=== PATIENT | female | born 1995 | race Hispanic/Latino ===

== ENCOUNTER 2022-01-27 01:26 | Emergency (ER) | payer SELFPAY | END 2022-01-27 03:17 | disposition home or self-care (01) | LOC: CSHERS 01:26 | DX: O99.611 Diseases of the digestive system complicating pregnancy, first trimester (principal); K80.20 Calculus of gallbladder without cholecystitis without obstruction; O23.11 Infections of bladder in pregnancy, first trimester; Z3A.01 Less than 8 weeks gestation of pregnancy | CPT/HCPCS: 76705 ==

== ENCOUNTER 2022-09-12 06:00 | Inpatient (IN) | payer OTHER ==
[2022-09-12] MEDS ORDERED: Diphenoxylate HCl/Atropine Tablet PO PRN ×2 (12:29)
[2022-09-12] MEDS ORDERED: Acetaminophen 500 MG TAB PO PRN (12:29)
[2022-09-12] MEDS ORDERED: Methylergonovine 0.2 MG/ML VIAL IM PRN (12:29)
[2022-09-12] MEDS ORDERED: Carboprost 250 MCG/ML AMP IM PRN (12:29)
[2022-09-12] MEDS ORDERED: Tranexamic Acid 1,000 MG/10 ML VIAL IVP PRN (12:29)
[2022-09-12] MEDS ORDERED: HYDROcodone/Acetaminophen 5/325 mg Tablet PO PRN ×2 (12:29)
[2022-09-12] MEDS ORDERED: Misoprostol 200 MCG TAB PR PRN (12:29)
[2022-09-12] MEDS ORDERED: Butorphanol Tartrate 1 MG/ML VIAL SLOW IVP PRN (12:29)
[2022-09-12] MEDS ORDERED: Ibuprofen 800 MG TAB PO PRN (12:29)
[2022-09-12] MEDS ORDERED: Promethazine HCl 25 MG/ML VIAL IM PRN (12:29)
[2022-09-12] MEDS ORDERED: hydrALAZINE 20 MG/ML VIAL SLOW IVP PRN (12:29)
[2022-09-12] MEDS ORDERED: Ondansetron PF 4 MG/2 ML Vial IVP PRN (12:29)
[2022-09-12] MEDS ORDERED: Lidocaine 1% (PF) 30 ML VIAL SC PRN (12:29)
[2022-09-12] MEDS ORDERED: NS w/ Oxytocin 30 units 500 ML IV SCH ×3 (12:30)
[2022-09-12] MEDS: Lactated Ringer's 1,000 ML IV SCH (13:05)
[2022-09-12] MEDS ORDERED: NS w/ Oxytocin 30 units 500 ML ONE (13:13)
[2022-09-12 13:24] VITALS: BMI 31.7
[2022-09-12 13:34] LABS: Hemoglobin 8.2 g/dL (12.0-15.5); Mean Corpuscular HGB CONC 30.5 g/dL (32.0-36.0); Mean Corpuscular Hemoglobin 23.6 pg (27.0-33.0); Mean Corpuscular Volume 77.5 fl (81.6-98.3); Mean Platelet Volume 12.4 fl (7.4-10.4); Platelet Count 293 10x3/uL (150-450); RBC Distribution Width 15.9 % (11.5-14.5); Red Blood Cell (RBC) Count 3.47 10x6/uL (3.90-5.03); White Blood Cell (WBC) Count 6.2 10x3/uL (3.5-10.5)
[2022-09-12] MEDS ORDERED: fentaNYL 50 mcg/mL 1 mL Vial SLOW IVP PRN (13:53)
[2022-09-12] MEDS ORDERED: Misoprostol 100 MCG TAB PO SCH (15:00)
[2022-09-12 16:26] LABS: Syphilis Antibody Nonreactive (Nonreactive); Syphilis Antibody Index 0.05 S/CO (<1.00 Non-Reactive)
[2022-09-12 16:27] LABS: HBSAg Index 0.12 S/CO (0-0.99); Hep B Surf Ag - L&D Non-Reactive S/CO (NonReactive)
[2022-09-12] MEDS: Misoprostol 100 MCG TAB PO SCH (19:55)
[2022-09-13] MEDS ORDERED: Preparation H Ointment 28 GM TUBE PR PRN (06:30)
[2022-09-13] MEDS ORDERED: Benzocaine-Menthol 82.5 ML CAN TOP PRN (06:30)
[2022-09-13] MEDS ORDERED: Lanolin Ointment 7 GM TUBE TOP PRN (06:30)
[2022-09-13] MEDS ORDERED: HYDROcodone/Acetaminophen 5/325 mg Tablet PO PRN ×2 (06:30)
[2022-09-13] MEDS ORDERED: Bisacodyl 10 MG SUPP PR PRN (06:30)
[2022-09-13] MEDS ORDERED: Boostrix 0.5 ML (Tdap) VIAL (>/=7 yrs of age) IM ONE (06:30)
[2022-09-13] MEDS ORDERED: Milk Of Magnesia 30 ML UDCUP PO PRN (06:30)
[2022-09-13] MEDS ORDERED: diphenhydrAMINE 25 MG CAP PO PRN (06:30)
[2022-09-13] MEDS ORDERED: Promethazine HCl 25 MG/ML VIAL IM PRN (06:30)
[2022-09-13] MEDS ORDERED: Measles/Mumps/Rubella 10 MCG/0.5 ML VIAL SC ONE (06:30)
[2022-09-13] MEDS ORDERED: hydrALAZINE 20 MG/ML VIAL SLOW IVP PRN (06:30)
[2022-09-13] MEDS ORDERED: Varicella virus, LIVE 0.5 ML VIAL SC ONE (06:30)
[2022-09-13] MEDS ORDERED: Ondansetron PF 4 MG/2 ML Vial IVP PRN (06:30)
[2022-09-13] MEDS ORDERED: Zolpidem Tartrate 5 MG TAB PO PRN (06:30)
[2022-09-13] MEDS ORDERED: NS w/ Oxytocin 30 units 500 ML IV SCH (06:30)
[2022-09-13] MEDS: Ibuprofen 800 MG TAB PO SCH ×3 (06:54→21:39)
[2022-09-13] MEDS: Ferrous Sulfate 325 MG TAB PO SCH ×3 (11:10→22:43)
[2022-09-13] MEDS: Prenatal Vitamin 1 TAB PO SCH (11:47)
[2022-09-13] MEDS: Docusate 100 MG CAP PO SCH ×2 (11:47→21:38)
[2022-09-13] MEDS: Misoprostol 100 MCG TAB PO SCH (12:46)
[2022-09-13] MEDS: Lactated Ringer's 1,000 ML IV SCH ×2 (12:46→12:47)
[2022-09-14 04:39] LABS: #Eosinphils 0.3 10x3/uL (0.0-0.5); #Monocytes 0.7 10x3/uL (0.0-1.1); #Neutrophils 6.3 10x3/uL (1.5-8.4); %Basophils 0.2 % (0.0-2.0); %Eosinophils 2.5 % (0.0-6.0); %Lymphocytes 28.3 % (18.0-47.0); %Monocytes 7.1 % (0.0-10.0); %Neutrophils 61.4 % (40.0-75.0); Hemoglobin 8.2 g/dL (12.0-15.5); Mean Corpuscular HGB CONC 30.6 g/dL (32.0-36.0); Mean Corpuscular Volume 78.4 fl (81.6-98.3); Mean Platelet Volume 12.2 fl (7.4-10.4); Platelet Count 251 10x3/uL (150-450); RBC Distribution Width 15.9 % (11.5-14.5); Red Blood Cell (RBC) Count 3.42 10x6/uL (3.90-5.03); White Blood Cell (WBC) Count 10.2 10x3/uL (3.5-10.5)
[2022-09-14] MEDS: Ibuprofen 800 MG TAB PO SCH (06:11)
[2022-09-14] MEDS: Ferrous Sulfate 325 MG TAB PO SCH (08:39)
[2022-09-14] MEDS: Prenatal Vitamin 1 TAB PO SCH (08:39)
[2022-09-14] MEDS: Docusate 100 MG CAP PO SCH (08:39)
[2022-09-14 08:56] VITALS: BP 106/65; TEMP 98.1
== END 2022-09-14 13:30 | disposition home or self-care (01) | DRG 807 ==
LOC: CSHLD 12:36 → CSHPP 09-13 12:30
PROVIDERS: ADMIT Obstetrics & Gynecology; ATTEND Obstetrics & Gynecology
PROC: 10E0XZZ Delivery of Products of Conception, External Approach (ICD-10-PCS; principal; 2022-09-13)
DX: O99.02 Anemia complicating childbirth (principal); Z37.0 Single live birth; Z3A.39 39 weeks gestation of pregnancy; D64.9 Anemia, unspecified
CPT/HCPCS: 36415; 85025; 85027; 86780; 86850; 86900; 86901; 87340; J2590; J3010; J7120